=== PATIENT | male | born 1970 | race Caucasian/White ===

== ENCOUNTER 2024-12-27 15:17 | Outpatient (AMB) | payer OTHER, SELFPAY ==
--- NOTE | 2024-12-27 15:19 | A.OFFVIS_ITS ---
Intake Visit Reasons: 1 year follow up Allergies No Known Allergies Allergy (Verified 12/27/24 15:23) Medication List - Last Reconciled 12/27/24 by Emmie Galan CNP carbamazepine 100 mg PO BID lisinopril 5 mg PO DAILY HPI Comments Details: 54-year-old man with postherpetic neuralgia on left lower back. He was doing okay. Postherpetic neuralgia pain was controlled with carbamazepine. If he ran out medication, pain came back back. No medication side effects. Sleep was okay. He was waiting for new CPAP supplies. [facility] Medical History (Updated 12/27/24 @ 15:22 by Emmie Galan CNP) Post herpetic neuralgia Post-herpetic trigeminal neuralgia RUBY (obstructive sleep apnea) Obesity Review of Systems Const Denies chills, Denies daytime sleepiness, Denies difficulty sleeping, Denies fatigue, Denies fever(s), Denies frequent falls, Denies headache(s), Denies increased appetite, Denies poor appetite, Denies snoring, Denies weakness, Denies weight gain and Denies weight loss Eyes Denies loss of vision ENT Denies vertigo, Denies dizziness and Denies headache(s) Card Denies chest pain at rest, Denies chest pain with activity, Denies syncope, De nies leg edema and Denies palpitations Resp Denies snoring GI Denies constipation, Denies heartburn, Denies diarrhea and Denies nausea Denies urinary frequency, Denies urinary incontinence and Denies urinary urgency Musc Denies abnormal gait, Denies numbness and Denies tingling Skin/Breast Denies dry skin and Denies rash Neuro Denies abnormal gait, Denies vertigo, Denies dizziness, Denies syncope, Denies frequent falls, Denies headache(s), Denies lack of coordination, Denies loss of vision, Denies memory loss, Denies numbness, Denies restless legs, Denies seizure-like activity, Denies tingling, Denies paresthesias, Denies tremor(s) and Denies weakness Psych Reports anxiety, Denies depression, Denies auditory hallucinations, Denies memory loss, Denies visual hallucinations and Denies suicidal ideation Endo Denies fatigue and Denies palpitations Physical Exam Const Other: General Appearance:? normal, in no acute distress. Skin:? no rashes, no significant birthmarks. Heart:? S1, S2 normal, no murmurs. Lungs:? clear anteriorly and posteriorly. Extremities:? no edema. Psych:? alert, oriented, cognitive function intact, cooperative with exam. Neuro Other: Mental Status:?Normal attention, orientation, memory and affect.? Cranial Nerves:?Pupils are equal, round and reactive to light. External occular muscles are intact. Visual talavera are full. Face is symmetrical. Facial sensations are normal. Tongue is midline. Palate elevates symmetrically. Shoulder shrugging is normal. Hearing to bedside conversation is normal. Coordination:?No ataxia,?no titubation.? Gait Exam: Within normal limits. Extrapyramidal System:?No tremor, rigidity with normal facial expressions.? Pronator Drift:?Not present.? Involuntary Movements:?No tremors seen.? Speech:?Normal.? Assessment & Plan Assessment & Plan (1) Post herpetic neuralgia: Code(s): B02.29 - Other postherpetic nervous system involvement Category: Medical Plan: Continue carbamazepine tablet chewable 100mg 1 tablet twice a day. Medications: Changed From carbamazepine 100 mg PO BID To carbamazepine 100 mg PO BID 180 tabs 3RF 90 days Coding Level of Care Code Est Pt Level 3 (69165) Diagnoses Post herpetic neuralgia B02.29
== END 2024-12-27 16:04 | disposition home or self-care (01) ==
LOC: HO.HSM 15:18
PROVIDERS: PCP Physician Assistant Medical; Visit Provider Registered Nurse
DX: B02.29 Other postherpetic nervous system involvement (principal)
CPT/HCPCS: 99213